=== PATIENT | male | born 1995 | race Caucasian/White ===

== ENCOUNTER 2024-03-31 18:22 | Emergency (ER) | payer BC | END 2024-03-31 19:09 | disposition home or self-care (01) | LOC: JP.ED 18:22 | DX: S00.05XA Superficial foreign body of scalp, initial encounter (principal); F17.210 Nicotine dependence, cigarettes, uncomplicated; W45.8XXA Other foreign body or object entering through skin, initial encounter; Z79.899 Other long term (current) drug therapy | CPT/HCPCS: 99283 ==